=== PATIENT | female | born 1975 | race Caucasian/White ===

== ENCOUNTER 2019-10-06 11:25 | Emergency (ER) | payer MEDICARE, MEDICAID ==
[~2019-10-06] VITALS: Ht 162.6 cm; Wt 86.4 kg
[~2019-10-06 11:25] MED LIST: DIPH-423 PO; FAMO-1 PO; PHEN-786 PO; PRED20TA PO
[2019-10-06] MEDS ORDERED: ringers solution, lacted 1,000 ML IV ONE (13:00)
[2019-10-06] MEDS ORDERED: morphine 4 MG/ML inj SYRINge IV ONE (13:00)
[2019-10-06 13:18] LABS: BASOPHILS # (AUTO) 0.1 X10'3 (0-0.2); BASOPHILS % (AUTO) 1.2 % (0-1); EOSINOPHILS # (AUTO) 0.2 X10'3 (0-0.9); EOSINOPHILS % (AUTO) 1.3 % (0-6); HEMATOCRIT 42.1 % (35.0-45.0); HEMOGLOBIN 14.4 g/dl (12.0-16.0); LYMPHOCYTES # (AUTO) 4.3 X10'3 (1.1-4.8); LYMPHOCYTES % (AUTO) 37.9 % (21-51); MEAN CORPUSCULAR HEMOGLOBIN 32.1 PG (27.0-31.0); MEAN CORPUSCULAR HGB CONC 34.2 g/dL (33.0-36.5); MEAN CORPUSCULAR VOLUME 93.9 FL (78-98); MEAN PLATELET VOLUME 7.8 FL (7.4-10.4); MONOCYTES # (AUTO) 0.9 X10'3 (0-0.9); MONOCYTES % (AUTO) 7.7 % (2-12); NEUTROPHILS % (AUTO) 51.9 % (42-75); PLATELET COUNT 331 X10'3 (140-440); RED BLOOD COUNT 4.48 X10'6 (4.20-5.60); RED CELL DISTRIBUTION WIDTH 13.5 % (11.5-14.5); WHITE BLOOD COUNT 11.5 X10'3 (4.5-11.0)
[2019-10-06] MEDS ORDERED: iohexol 300mg/ml 100ml inj. ONE (13:27)
[2019-10-06 13:41] LABS: ALANINE AMINOTRANSFERASE 36 U/L (12-78); ALBUMIN 3.9 G/DL (3.4-5.0); ALKALINE PHOSPHATASE 75 IU/L (46-116); ANION GAP 9 (8-16); ASPARTATE AMINO TRANSFERASE 17 U/L (10-37); BILIRUBIN,TOTAL 0.3 MG/DL (0.1-1.0); BLOOD UREA NITROGEN 9 MG/DL (7-18); BUN/CREATININE RATIO 14.5 (6.6-38.0); CALCIUM 9.3 MG/DL (8.5-10.1); CHLORIDE 104 MMOL/L (99-107); CREATININE 0.62 MG/DL (0.40-0.90); GLUCOSE 97 MG/DL (70-104); LIPASE 155 U/L (73-393); POTASSIUM 3.6 MMOL/L (3.5-5.1); SODIUM 139 MMOL/L (135-145); TOTAL CARBON DIOXIDE 25.7 MMOL/L (24-32); eGFR > 90 ML/MIN
[2019-10-06 14:13] LABS: CLARITY,URINE SLIGHTLY CLOUDY (Clear); COLOR,URINE STRAW (Yellow); GLUCOSE, URINE NEGATIVE (Neg); KETONES,URINE NEGATIVE (Neg); LEUKOCYTE ESTERASE ,URINE NEGATIVE (Neg); NITRITES, URINE NEGATIVE (Neg); OCCULT BLOOD,URINE TRACE-INTACT (Neg); PROTEIN,URINE NEGATIVE (Neg); UA COLLECTION TYPE CLN CATCH MIDSTREAM; UROBILINOGEN,URINE 0.2 E.U/dL (0.2-1.0)
[2019-10-06 14:19] LABS: BACTERIA,URINE 1+ /HPF (Neg); RBC,URINE 0-2 /HPF (0-2); SQUAMOUS EPITHELIAL CELL,UR MANY /LPF (FEW); WBC,URINE 0-4 /HPF (0-4)
--- NOTE | 2019-10-06 14:29 | NUR ---
shane pts sister [phone]
--- NOTE | 2019-10-06 14:33 | NUR ---
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
[2019-10-06] MEDS ORDERED: HYDR-4383 PO (14:48)
[2019-10-06 15:12] VITALS: BP 144/86
== END 2019-10-06 15:14 | disposition home or self-care (01) ==
LOC: ER 11:25
DX: K40.90 Unilateral inguinal hernia, without obstruction or gangrene, not specified as recurrent (principal); K52.9 Noninfective gastroenteritis and colitis, unspecified; G89.29 Other chronic pain; F41.9 Anxiety disorder, unspecified; F17.200 Nicotine dependence, unspecified, uncomplicated; F12.90 Cannabis use, unspecified, uncomplicated; F10.99 Alcohol use, unspecified with unspecified alcohol-induced disorder; Z98.890 Other specified postprocedural states; Z98.51 Tubal ligation status; Z85.118 Personal history of other malignant neoplasm of bronchus and lung; Z88.2 Allergy status to sulfonamides; Z88.8 Allergy status to other drugs, medicaments and biological substances; Z79.899 Other long term (current) drug therapy
CPT/HCPCS: 36415; 74177; 80053; 81001; 83690; 85025; 96361; 96374; 99284; J2270; Q9967; J7030; J7120

== ENCOUNTER 2020-04-06 07:51 | Emergency (ER) | payer MEDICARE, MEDICAID ==
[~2020-04-06] VITALS: Ht 162.6 cm; Wt 45.0 kg
[~2020-04-06 07:51] MED LIST changes: +HYDR-4383 PO
[2020-04-06] MEDS ORDERED: LORazepam 1 MG tablet PO ONE (09:50)
[2020-04-06 10:14] VITALS: BP 146/96
[2020-04-06] MEDS ORDERED: FAMO40TA73 PO (11:42)
== END 2020-04-06 12:02 | disposition home or self-care (01) ==
LOC: ER 07:51
DX: F41.9 Anxiety disorder, unspecified (principal); F32.9 Major depressive disorder, single episode, unspecified; K21.9 Gastro-esophageal reflux disease without esophagitis; G89.29 Other chronic pain; F12.90 Cannabis use, unspecified, uncomplicated; Z98.51 Tubal ligation status; Z98.890 Other specified postprocedural states; Z72.89 Other problems related to lifestyle; Z87.891 Personal history of nicotine dependence; Z88.2 Allergy status to sulfonamides; Z88.8 Allergy status to other drugs, medicaments and biological substances; Z79.899 Other long term (current) drug therapy
CPT/HCPCS: 99283

== ENCOUNTER 2022-08-29 09:04 | Emergency (ER) | payer MEDICARE, MEDICAID ==
[~2022-08-29] VITALS: Ht 162.6 cm; Wt 79.1 kg
[~2022-08-29 09:04] MED LIST changes: +FAMO40TA73 PO
[2022-08-29 09:58] VITALS: BP 164/111
[2022-08-29] MEDS ORDERED: NEOM10DR45 RIGHT EAR (10:23)
== END 2022-08-29 10:39 | disposition home or self-care (01) ==
LOC: ER 09:05
DX: H60.313 Diffuse otitis externa, bilateral (principal); J31.2 Chronic pharyngitis; K21.9 Gastro-esophageal reflux disease without esophagitis; G89.29 Other chronic pain; F17.200 Nicotine dependence, unspecified, uncomplicated; F12.10 Cannabis abuse, uncomplicated; Z88.2 Allergy status to sulfonamides; Z79.899 Other long term (current) drug therapy; Z88.8 Allergy status to other drugs, medicaments and biological substances
CPT/HCPCS: 99282

== ENCOUNTER 2022-09-20 07:18 | Emergency (ER) | payer MEDICARE, MEDICAID ==
[~2022-09-20] VITALS: Ht 162.6 cm; Wt 78.2 kg
[2022-09-20 07:36] VITALS: BP 142/103
[2022-09-20] MEDS ORDERED: CYCL-1 PO (10:52)
== END 2022-09-20 10:59 | disposition home or self-care (01) ==
LOC: ER 07:19
DX: J31.2 Chronic pharyngitis (principal); M54.2 Cervicalgia; R59.9 Enlarged lymph nodes, unspecified; K21.9 Gastro-esophageal reflux disease without esophagitis; G89.29 Other chronic pain; F41.9 Anxiety disorder, unspecified; F12.90 Cannabis use, unspecified, uncomplicated; Z85.118 Personal history of other malignant neoplasm of bronchus and lung; Z98.51 Tubal ligation status; Z98.890 Other specified postprocedural states; Z72.89 Other problems related to lifestyle; Z88.2 Allergy status to sulfonamides; Z79.899 Other long term (current) drug therapy
CPT/HCPCS: 99283

== ENCOUNTER 2024-08-14 07:56 | Emergency (ER) | payer MEDICARE, MEDICAID ==
[~2024-08-14] VITALS: Ht 162.6 cm; Wt 84.7 kg
[~2024-08-14 07:56] MED LIST changes: +CYCL-1 PO
[2024-08-14 07:58] VITALS: BP 146/85; PULSE 77; TEMP 98; O2SAT 100
[2024-08-14] MEDS ORDERED: AMOX-580 PO (08:12)
[2024-08-14 08:26] VITALS: RESP 18
[2024-08-14] MEDS: ketorolac trometh 15mg/ml vial 15 MG/ML ML IM ONE (08:26)
== END 2024-08-14 08:29 | disposition home or self-care (01) ==
LOC: ER 07:57
DX: K04.7 Periapical abscess without sinus (principal); K21.9 Gastro-esophageal reflux disease without esophagitis; F41.9 Anxiety disorder, unspecified; F12.90 Cannabis use, unspecified, uncomplicated; Z88.2 Allergy status to sulfonamides; Z79.2 Long term (current) use of antibiotics; Z79.899 Other long term (current) drug therapy; Z98.890 Other specified postprocedural states; Z98.51 Tubal ligation status
CPT/HCPCS: 96372; 99283; J1885

== ENCOUNTER 2025-09-24 12:57 | Emergency (ER) | payer MEDICARE, MEDICAID ==
[~2025-09-24] VITALS: Ht 162.6 cm; Wt 72.3 kg
--- NOTE | 2025-09-24 13:06 | Physician Documentation ---
History of Present Illness ~ General Stated Complaint: HIGH BLOOD PRESSURE Time Seen by MD: 13:03 Primary Medical Doctor: [facility] History of Present Illness Initial Comments This is a 49-year-old female who presents to the emergency department with a mu ltitude of complaints today. She reports that she had a tooth pulled yesterday and is having some right upper dental pain, is currently on antibiotics. She also reports that she has pain everywhere, and that her right leg is swollen and arsenio at times. She is concerned she has a blood clot. She is also concerned because she is coughing up poison. Denies recent fevers or chills. Negative stroke scale in triage. Medication Reconciliation Allergies: Coded Allergies: Sulfa (Sulfonamide Antibiotics) (Unverified Allergy, Severe, SEVERE, 09/24/25) sulfamethoxazole (Verified Allergy, Unknown, 09/24/25) trimethoprim (Verified Allergy, Unknown, 09/24/25) Scheduled Cyclobenzaprine* (Cyclobenzaprine*), 1 TAB PO Q8H Diphenhydramine Hcl* (Benadryl*), 25 MG PO Q6H Famotidine (Pepcid), 1 TAB PO DAILY Famotidine* (Pepcid*), 20 MG PO BID Hydrocodone/Acetaminophen ([place] 5-325 Tablet), 1 TAB PO TID PRN Prednisone* (Prednisone*), 40 MG PO DAILY Scheduled PRN Phenazopyridine Hcl (Pyridium tablet), 1 TAB PO Q8H PRN for pain Past Medical History Past Medical History: *ENT*, Sinusitis, GERD, Hernia, Chronic Pain, Chronic Back Pain, Lung Cancer, Anxiety Past Surgical History: , tubal ligation Alcohol Use: Occasionally Drug Use: marijuana Lives with: Spouse, Family Lives In: Home Review of Systems ROS As stated above in the HPI, otherwise all systems are reviewed and negative. Physical Exam Physical Exam Physical Exam General: Alert, crying and anxious on exam. Neck: Full range of motion. Face: Mild right facial swelling. Respiratory: Lungs clear, no respiratory distress. Chest: No accessory muscle use. Cardiovascular: Regular rate and rhythm, no murmurs. Gastrointestinal: Soft, nontender, nondistended. Bowels sounds present. Extremities: Normal range of motion, no deformity. Neurologic: Oriented x4. No focal deficits. No facial droop or arm/leg drift. Reports "numbness" on right side. Ambulates without antalgic gait. Psychiatric: Normal mood and affect. Skin: Normal color, warm and dry. No edema, no ecchymosis. Progress Results/Orders Results/Orders Orders - CAMILLE LOPEZ TILE SETTER Patient In Gown (09/24/25 ) Completed Orders - CAMILLE LOPEZ TILE SETTER Cbc/Diff (09/24/25 13:03) BMP (09/24/25 13:03) Liver Panel (09/24/25 13:03) Drug Screen, Urine (09/24/25 13:28) Ua W/Microscopic, Cult If Ind (09/24/25 15:38) Vital Signs 09/24/25 09/24/25 09/24/25 09/24/25 12:58 15:50 16:15 16:31 Temp 98.4 98.4 98.4 Pulse 100 88 Resp 16 18 18 B/P (MAP) 130/79 152/103 (119) Pulse Ox 100 99 O2 Flow Rate 0 0 Laboratory Tests Test 09/24/25 13:54 09/24/25 15:38 White Blood Count 9.2 Red Blood Count 4.58 Hemoglobin 15.0 Hematocrit 44.1 Mean Corpuscular Volume 96.1 Mean Corpuscular Hemoglobin 32.6 H Mean Corpuscular Hemoglobin Concent 33.9 Red Cell Distribution Width 13.3 Platelet Count 307 Mean Platelet Volume 8.2 Neutrophils (%) (Auto) 49.1 Lymphocytes (%) (Auto) 42.1 Monocytes (%) (Auto) 6.8 Eosinophils (%) (Auto) 1.4 Basophils (%) (Auto) 0.6 Neutrophils # (Auto) 4.5 Lymphocytes # (Auto) 3.9 Monocytes # (Auto) 0.6 Eosinophils # (Auto) 0.1 Basophils # (Auto) 0.1 CBC Comment Sodium Level 137 Potassium Level 4.1 Chloride Level 103 Carbon Dioxide Level 25.1 Anion Gap 9 Blood Urea Nitrogen 9 Creatinine 0.56 Estimated GFR/1.73 m2 > 90 BUN/Creatinine Ratio 16.1 Glucose Level 101 Calcium Level 9.1 Total Bilirubin 0.5 Direct Bilirubin 0.1 Aspartate Amino Transf (AST/SGOT) 18 Alanine Aminotransferase (ALT/SGPT) 46 Alkaline Phosphatase 65 Total Protein 8.0 Albumin 4.0 Globulin 4.0 Albumin/Globulin Ratio 1.0 L Chemistry Comments Urine Specimen Description Cln catch midstream Urine Color Yellow Urine Clarity Clear Urine pH 6.0 Urine Specific [place] 1.025 Urine Protein Negative Urine Glucose (UA) Negative Urine Ketones Trace H Urine Occult Blood Small Urine Nitrite Negative Urine Bilirubin Negative Urine Urobilinogen 0.2 Urine Leukocyte Esterase Negative Urine RBC 3-10 Urine WBC 0-4 Urine Squamous Epithelial Cells Many Urine Bacteria Few Urine Mucus Moderate Urine Culture Indicated Not ind Volume Urine Centrifuged 10 ml Urine Comment Urine Opiates Screen Negative Urine Methadone Screen Negative Urine Fentanyl Screen Negative Urine Barbiturates Screen Negative Urine Phencyclidine Screen Negative Urine Amphetamines Screen Negative Urine Benzodiazepines Screen Negative Urine Cocaine Screen Negative Urine Cannabinoids Screen Positive H Drug Screen Comment Medical Decision Making Additional information obtaine: old records Findings 07/2024, patient was seen for dental abscess. Differential Diagnosis This is a 49-year-old female that presented with a multitude of complaints. She has no focal neurologic deficits. She does have mild facial swelling, and notes that she had an abscess tooth pulled just yesterday. She is currently on peni cillin. She has had no fevers or chills. She just reports globally feeling unwell. Labs were unremarkable including urinalysis. She is instructed to follow up with the primary care return if worse. Suspect viral syndrome, no evidence of sepsis or severe infection. Normal VS, no hypoxia. No emergent condition identified. Anxiety is also playing a role. Departure Time of Disposition: 16:20 Disposition: 01 HOME / SELF CARE / HOMELESS Impression: Primary Impression: Dental infection Additional Impression: Intermittent paresthesia of hand and foot Condition: Stable Discharge Instructions: Dental Pain, Weakness Additional Instructions: No explanation was found for your symptoms. You had a negative stroke scale, you had no evidence of a DVT in your leg. Your labs were overall normal. Your urinalysis was normal, showing no evidence of infection. Please remain on the penicillin as at present for dental infection with recent extraction of the right upper jaw tooth. Please follow up with your dentist, follow up with the primary care, return if worse. Referrals: NO PRIMARY CARE PROVIDER (PCP) Education Educated: Patient, Family Educated regarding: diagnosis, treatment, prognosis Signature Scribe Signature: x Attestation: The note accurately reflects work and decisions made by me.Camille Lozoya NP 09/24/25 13:05 CAMILLE LOPEZ NP Sep 24, 2025 13:06
[2025-09-24 14:29] LABS: MEAN PLATELET VOLUME 8.2 FL (7.4-10.4); RED CELL DISTRIBUTION WIDTH 13.3 % (11.5-14.5)
[2025-09-24 15:03] LABS: CREATININE 0.56 MG/DL (0.40-0.90); TOTAL CARBON DIOXIDE 25.1 MMOL/L (24-32); eCRCL 107 ML/MIN; eGFR > 90 ML/MIN
[2025-09-24 16:06] LABS: LEUKOCYTE ESTERASE ,URINE NEGATIVE (Neg); NITRITES, URINE NEGATIVE (Neg); OCCULT BLOOD,URINE SMALL (Neg)
[2025-09-24 16:07] LABS: UA COLLECTION TYPE CLN CATCH MIDSTREAM
[2025-09-24 16:14] LABS: MUCUS STRANDS MODERATE /LPF (Neg); SQUAMOUS EPITHELIAL CELL,UR MANY /LPF (FEW)
[2025-09-24 16:15] VITALS: BP 152/103; PULSE 88; RESP 18; O2SAT 99
[2025-09-24 16:15] LABS: URINE AMPHETAMINE SCREEN NEGATIVE (Neg); URINE BARBITUATE SCREEN NEGATIVE (Neg); URINE BENZODIAZEPINES SCREEN NEGATIVE (Neg); URINE CANNABINOID SCREEN POSITIVE (Neg); URINE COCAINE SCREEN NEGATIVE (Neg); URINE METHADONE SCREEN NEGATIVE (Neg); URINE OPIATE SCREEN NEGATIVE (Neg); URINE PHENCYCLIDINE SCREEN NEGATIVE (Neg)
[2025-09-24 16:31] VITALS: TEMP 98.4
== END 2025-09-24 16:38 | disposition home or self-care (01) ==
LOC: ER 12:57
DX: K04.7 Periapical abscess without sinus (principal); R20.2 Paresthesia of skin; G89.29 Other chronic pain; K21.9 Gastro-esophageal reflux disease without esophagitis; F41.9 Anxiety disorder, unspecified; F12.90 Cannabis use, unspecified, uncomplicated; Z88.2 Allergy status to sulfonamides; Z88.8 Allergy status to other drugs, medicaments and biological substances; Z98.51 Tubal ligation status; Z85.118 Personal history of other malignant neoplasm of bronchus and lung; Z79.899 Other long term (current) drug therapy; Z72.89 Other problems related to lifestyle
CPT/HCPCS: 36415; 80048; 80076; 80305; 81001; 85025; 99283